=== PATIENT | female | born 1960 | race Caucasian/White ===

== ENCOUNTER → 2018-12-09 13:33 | Outpatient (CLI) | payer OTHER, SELFPAY ==
--- NOTE | 2018-12-09 | DI.ECHO.S_ITS ---
[facility] +---------+ : : [address] : [place] : : : : [phone] : : : : Phone: [phone]+ Echocardiogram Report + + :Name: MK CLINE Study Date: 12/09/2018 Height: 67 in : :[facility] Location: [facility] Weight: 156 lb : : Gender: Female BSA: 1.8 m2 : :: 1960 Age: 58 yrs BP: 125/80 mmHg: :Reason For Study: Palpitations : :Ordering Physician: Mario : :Aminta oGnzalez Performed By: Savannah Page : + + Interpretation Summary The left ventricle is normal in size, wall thickness, and systolic function without any focal wall motion abnormalities. The ejection fraction is estimated to be 60-65%. Diastolic parameters suggest probable normal left ventricular diastolic function and normal filling pressures. The right ventricle is normal in size and function. Both atria are normal in size. -Essentially normal echocardiogram. -No prior echos for comparison. Procedure: A two-dimensional transthoracic echocardiogram with color flow and Doppler was performed. The study quality was technically adequate. There is no prior echocardiogram noted for this patient. The heart rate ranged between 48-56 bpm during the study. Left Ventricle: The left ventricle is normal in size, wall thickness, and systolic function without any focal wall motion abnormalities. The ejection fraction is estimated to be 60-65%. Diastolic parameters suggest probable normal left ventricular diastolic function and normal filling pressures. Right Ventricle: The right ventricle is normal in size and function. Atria: Both atria are normal in size. There is no Doppler evidence for an interatrial shunt. Mitral Valve: The mitral valve is normal in structure and function. There is trace mitral regurgitation. Aortic Valve: The aortic valve is trileaflet. The aortic valve opens well. There is trace aortic regurgitation. Tricuspid Valve: The tricuspid valve is normal in structure and function. There is a trace or physiologic amount of tricuspid regurgitation. Pulmonary artery pressures cannot be estimated because of the lack of a measurable TR jet velocity. Pulmonic Valve: The pulmonic valve is not well visualized. There is a trace or physiologic amount of pulmonic regurgitation. Great Vessels: The aortic root is normal size. The ascending aorta is normal in size. The aortic arch is normal in size. The pulmonary is not well visualized. The IVC is of normal diameter and collapses greater than 50% with a sniff. This suggests a low right atrial pressure of 3 mm Hg. Pericardium/ Pleura There is no pericardial effusion. There is no pleural effusion. MMode/2D Measurements & Calculations LVIDd: 4.4 cm LVOT diam: 2.1 cm LVIDs: 2.5 cm Ao root diam: 3.5 cm FS: 43.0 % asc Aorta Diam: 3.0 cm EPSS: 0.05 cm Ao Arch Diam (Prox Trans): 2.8 cm IVSd: 0.74 cm LVPWd: 0.86 cm LV reich. diameter/BSA (cm/m^2): 2.4 LV sys. diameter/BSA (cm/m^2): 1.4 LA A2 area: 19.4 cm2 RA long axis: 5.0 cm LA A4 area: 19.9 cm2 RA area: 17.3 cm2 LA length (vol): 5.8 cm RA vol: 50.8 ml LA vol: 56.5 ml RA : 27.9 ml/m2 LA vol index: 31.1 ml/m2 IVC diam: 1.4 cm RVD1 (basal): 3.8 cm Doppler Measurements & Calculations Ao V2 max: 107.0 cm/sec LVOT Max Kd: 80.5 cm/sec Ao V2 mean: 80.0 cm/sec LV V1 max P.6 mmHg Ao max P.6 mmHg LV V1 VTI: 19.8 cm Ao mean P.7 mmHg REINALDO(I,D): 2.8 cm2 Ao V2 VTI: 23.7 cm REINALDO(V,D): 2.5 cm2 sev ratio: 0.84 REINALDO indexed to BSA (cm^2/m^2): 1.5 MV E max kd: 58.6 cm/sec PA V2 max: 86.0 cm/sec MV A max kd: 50.2 cm/sec PA V2 mean: 61.5 cm/sec MV E/A: 1.2 PA mean P.6 mmHg Med Peak E' Kd: 6.2 cm/sec PA Accel Time: 0.11 sec E/E' med: 9.5 Lat Peak E' Kd: 8.6 cm/sec E/E' lat: 6.8 E/e' average: 8.2 MV dec time: 0.18 sec MV P1/2t: 53.1 msec MV P1/2t max kd: 58.9 cm/sec SV(LVOT): 66.0 ml MVA(P1/2t): 4.1 cm2 Electronically signed by: Mario Lemos M.D. on Reading Physician:12/09/2018 06:48 PM
== END ==
PROVIDERS: PCP Family Medicine; Visit Provider Hospitalist
DX: R00.2 Palpitations (principal)
CPT/HCPCS: 93306